=== PATIENT | male | born 1960 | race Caucasian/White ===

== ENCOUNTER 2017-01-27 07:28 | Emergency (ER) | payer OTHER ==
[2017-01-27] MEDS ORDERED: Lidocaine 2% 10 ML* VIAL INJ ONE (07:48)
[2017-01-27] MEDS ORDERED: Lidocaine 2% PF * 5 ML VIAL ONE (07:52)
--- NOTE | 2017-01-27 08:25 | UC ---
Skin Complaint HPI - HPI Summary HPI Summary: ingrown toenail left big toe x 30 days + pain , redness, swelling no discharge - History of Current Complaint Chief Complaint: UCSkin Time Seen by Provider: 01/27/17 07:30 Stated Complaint: LEFT FOOT BIG TOE Hx Obtained From: Patient Onset/Duration: Gradual Onset, Lasting Days - 30, Still Present Timing: Constant Onset Severity: Moderate Current Severity: Severe Location: Discrete - left great toe/ toenail Character: Swelling, Pain, Redness, Raised, Painful Aggravating: Touch Alleviating: Nothing Associated Signs & Symptoms: Positive: Tenderness. Negative: Nausea, Vomiting, Numbness, Drainage, Red Streaks - Allergy/Home Medications Allergies/Adverse Reactions: Allergies Allergy/AdvReac Type Severity Reaction Status Date / Time Penicillins Allergy Unknown Verified 01/27/17 07:36 Reaction Details Review of Systems Constitutional: Negative Skin: Negative Eyes: Negative ENT: Negative Respiratory: Negative Cardiovascular: Negative All Other Systems Reviewed And Are Negative: Yes PMH/Surg Hx/FS Hx/Imm Hx Cardiovascular History: Hypertension - Surgical History Surgical History: Yes Surgery Procedure, Year, and Place: Right Hip and Left Tibia Hardware, 04/26/15 [facility] - Family History Known Family History: Positive: Hypertension - Social History Alcohol Use: 4 daily Substance Use Type: None Smoking Status (MU): Never Smoked Tobacco Type: Smokeless Tobacco Amount Used/How Often: 1/2 can daily Length of Time of Smoking/Using Tobacco: Since Age 19 Have You Smoked in the Last Year: Yes - Immunization History Most Recent Influenza Vaccination: Not the Season Physical Exam Triage Information Reviewed: Yes Appearance: Well-Appearing, No Pain Distress, Well-Nourished Vital Signs: Initial Vital Signs Temp 98.3 F 01/27/17 07:32 Pulse 98 01/27/17 07:32 Resp 16 01/27/17 07:32 BP 161/94 01/27/17 07:32 Pulse Ox 100 01/27/17 07:32 Vital Signs Reviewed: Yes Eyes: Positive: Conjunctiva Clear ENT: Positive: Normal ENT inspection, Hearing grossly normal, Pharynx normal Neck exam: Normal Neck: Positive: Supple, Nontender, No Lymphadenopathy Respiratory: Positive: Chest non-tender, Lungs clear, Normal breath sounds Cardiovascular: Positive: RRR, No Murmur, Pulses Normal Abdominal Exam: Normal Skin: Positive: Other - left great toe : + ingrown toenail + erythema, swellig, tender , no discharge Course/Dx - Diagnoses Provider Diagnoses: ingrown toenail left great toe Procedures - Procedure Summary Procedure Summary: ingrown toenail removal left great toe the area was peeped with betadine for anesthesia : 2% lidocaine plain x 5 cc the lateral corner of the toenail was removed using a clamp and scissors pressure dressing was placed pt. tolerated the procedure well Discharge - Discharge Plan Condition: Stable Disposition: HOME Prescriptions: Clindamycin Cap(NF) [Clindamycin Cap 300 mg Cap(NF)] 300 mg PO TID #21 cap Patient Education Materials: Ingrown Nail (ED) Referrals: No Primary Care Phys,NOPCP [Medical Doctor] - 3 Days Additional Instructions: follow up in 3 days for wound check
[2017-01-27 08:30] VITALS: BP 153/89
== END 2017-01-27 08:36 | disposition home or self-care (01) ==
LOC: UCCORT 07:28
DX: L60.0 Ingrowing nail (principal); I10 Essential (primary) hypertension; F17.290 Nicotine dependence, other tobacco product, uncomplicated; Z88.0 Allergy status to penicillin
CPT/HCPCS: 11765; 99212; G0463; J2001